=== PATIENT | female | born 1970 | race Caucasian/White ===

== ENCOUNTER 2017-04-18 11:30 | Emergency (ER) | payer OTHER ==
[~2017-04-18] VITALS: Ht 162.6 cm; Wt 84.5 kg
[~2017-04-18 11:30] MED LIST: ALPR0.5T PO; CIPR500T4 PO; DOCU-144 PO; HYDR-906 PO; IBUP-1542 PO; METR500T PO
[2017-04-18 11:46] VITALS: Ht 162.6 cm; Wt 84.5 kg
[2017-04-18 12:55] LABS: URINE BLOOD (Dip) POC 2+ (NEGATIVE)
--- NOTE | 2017-04-18 12:56 | ERD ---
ER Documentation Chief Complaint Date/Time DATE: 04/18/17 TIME: 12:54 Chief Complaint bodyache/pain x 3 days; no fever complaint; no dizziness HPI Patient is a 46-year-old female with a past medical history of anxiety who presents to the ED with body aches on and off for the last 4 days. She states that she has taken ibuprofen with minimal relief. Denies fever or chills. Denies abdominal pain, nausea, vomiting or diarrhea. Denies chest pain, cough or shortness of breath. Denies headache or dizziness. Denies trauma or falls. She states that she was she is premenopausal and states that it could possibly be related to this. Denies seizures. She states that she took Xanax yesterday which helped minimally with her symptoms. No other complaints. ROS All systems reviewed and are negative except as per history of present illness. Medications Home Meds Active Scripts Ibuprofen* (Motrin*) 400 Mg Tab, 400 MG PO Q6, #30 TAB Prov:DORIAN MILLIGAN PA-C 04/18/17 Docusate Sodium* (Colace*) 100 Mg Capsule, 100 MG PO TID, #30 CAP Prov:SPENSER ARCHULETA PA-C 11/01/16 Ibuprofen* (Motrin*) 600 Mg Tab, 600 MG PO Q6, #30 TAB Prov:SPENSER ARCHULETA PA-C 11/01/16 Hydrocodone/Acetaminophen ([place] 5-325 Tablet) 1 Each Tablet, 1 TAB PO Q6H Y for PAIN, #15 TAB Prov:SPENSER ARCHULETA PA-C 11/01/16 Metronidazole* (Flagyl*) 500 Mg Tablet, 500 MG PO TID for 7 Days, TAB Prov:SPENSER ARCHULETA PA-C 11/01/16 Ciprofloxacin Hcl* (Ciprofloxacin Hcl*) 500 Mg Tablet, 500 MG PO BID for 7 Days , TAB Prov:SPENSER ARCHULETA PA-C 11/01/16 Ibuprofen* (Motrin*) 600 Mg Tab, 600 MG PO Q6H Y for PAIN AND OR ELEVATED TEMP, #30 Prov:SPENCER PATRICIA MD 08/14/15 Reported Medications Alprazolam* (Xanax*) 0.5 Mg Tab, 0.5 MG PO once a month Y for ANXIETY, TAB 08/14/15 Allergies Allergies: Coded Allergies: No Known Allergies (Verified Allergy, Mild, 08/14/15) PMhx/Soc History of Surgery: Yes (CSECTION) Anesthesia Reaction: No Hx Neurological Disorder: No Hx Respiratory Disorders: No Hx Cardiac Disorders: No Hx Psychiatric Problems: Yes (Anxiety) Hx Miscellaneous Medical Probl: No Hx Alcohol Use: No Hx Substance Use: No Hx Tobacco Use: No FmHx Family History: No coronary disease, No diabetes, No other Physical Exam Vitals Vital Signs Date Time Temp Pulse Resp B/P Pulse Ox O2 Delivery O2 Flow Rate FiO2 04/18/17 11:46 98.3 90 18 137/81 98 Physical Exam GENERAL: Well-developed, well-nourished female. Appears in no acute distress. HEAD: Normocephalic, atraumatic. EYES: Pupils are equally reactive bilaterally. EOMs grossly intact. No conjunctival erythema. ENT: Moist mucous membranes. No uvula deviation. No kissing tonsils. No exudates. NECK: Supple. No lymphadenopathy or thyromegaly. No meningismus. negative kernig. negative brudinski. LUNG: Clear to auscultation bilaterally. No rhonchi, wheezing, rales or coarse breath sounds. HEART: Regular rate and rhythm. No murmurs, rubs or gallops. ABDOMEN: No scars, ecchymosis or rashes noted. Soft, nontender, and nondistended. Positive bowel sounds in all four quadrants. No rebound tenderness , no guarding. (-) McBurneys point tenderness. No CVA tenderness. BACK: No midline tenderness. Extremities: Equal pulses bilaterally. No peripheral clubbing, cyanosis or edema. No unilateral leg swelling. NEUROLOGIC: Alert and oriented. Moving all four extremities. 5/5 strength in all extremities. Normal speech. Steady gait. Cranial nerves II through XII intact. SKIN: Normal color. Warm and dry. No rashes or lesions. Capillary refill < 2 seconds Result Diagram: 04/18/17 1305 04/18/17 1305 Results 24 hrs Laboratory Tests Test 04/18/17 12:57 04/18/17 13:05 Bedside Urine pH (LAB) 5.5 Bedside Urine Protein (LAB) Negative Bedside Urine Glucose (UA) Negative Bedside Urine Ketones (LAB) Negative Bedside Urine Blood 2+ Bedside Urine Nitrite (LAB) Negative Bedside Urine Leukocyte Esterase (L Negative White Blood Count 7.910^3/ul Red Blood Count 4.8910^6/ul Hemoglobin 14.8g/dl Hematocrit 45.9% Mean Corpuscular Volume 93.9fl Mean Corpuscular Hemoglobin 30.3pg Mean Corpuscular Hemoglobin Concent 32.2g/dl Red Cell Distribution Width 12.8% Platelet Count 55289^3/UL Mean Platelet Volume 9.6fl Neutrophils % 60.0% Lymphocytes % 31.7% Monocytes % 5.9% Eosinophils % 1.6% Basophils % 0.5% Nucleated Red Blood Cells % 0.0/100WBC Neutrophils # 4.810^3/ul Lymphocytes # 2.510^3/ul Monocytes # 0.510^3/ul Eosinophils # 0.110^3/ul Basophils # 0.010^3/ul Nucleated Red Blood Cells # 0.010^3/ul Sodium Level 144mmol/L Potassium Level 4.9mmol/L Chloride Level 111mmol/L Carbon Dioxide Level 26mmol/L Anion Gap 12 Blood Urea Nitrogen 11mg/dl Creatinine 0.54mg/dl Glucose Level 97mg/dl Calcium Level 9.5mg/dl Procedures/MDM ER COURSE: I kept the patient and/or family informed of laboratory and diagnostic imaging results throughout the emergency room course. LABORATORY STUDIES CBC does not show signs of severe anemia or infection. BMP does not show electrolyte disturbance or hypoglycemia. MEDICAL DECISION MAKING: This is a 46-year-old female with a past medical history of anxiety who presents with generalized body aches and joint pain 4 days. Vital signs were reviewed. Patient is afebrile. Patient is not hypoxic. Patient is not toxic or ill-appearing. Patient has body aches and joint pain of unknown etiology. I have low suspicion for suicidal tendencies. Low suspicion for sepsis or meningitis. Low suspicion for ACS, AAA, perforated ulcer, bowel obstruction, cholecystitis, choledocholithiasis, cholangitis, pancreatitis, hepatic abscess, appendicitis, diverticulitis, gastroenteritis, hepatitis, peptic ulcer disease. DISCHARGE: At this time, patient is stable for discharge and outpatient management with no new complaints during the ER course. Patient was sent home with copy of all laboratory studies, Motrin and to follow-up with her primary care doctor. Advised patient to also follow-up with her creel cleaner to rule out autoimmune condition.. Patient will be discharged home with instructions to recheck for new or worsening symptoms such as fever, nausea, weakness, LOC and to follow up with primary care in the next 1-2 days. Patient was advised to return to the ER for any new or worsening symptoms. Plan was discussed and patient and/or family understands and agrees. Home instructions were given. Departure Diagnosis: Primary Impression: Body aches Condition: Stable DORIAN MILLIGAN PA-C April 18, 2017 12:56
[2017-04-18 13:10] LABS: ADD SCAN DIFF NO
[2017-04-18 13:24] LABS: BASOPHILS % 0.5 % (0.0-2.0); EOSINOPHILS # 0.1 10^3/ul (0.0-0.5); EOSINOPHILS % 1.6 % (0.0-7.0); HEMATOCRIT 45.9 % (37.0-47.0); HEMOGLOBIN 14.8 g/dl (12.0-16.0); LYMPHOCYTES # 2.5 10^3/ul (0.8-2.9); LYMPHOCYTES % 31.7 % (15.0-51.0); MEAN CORPUSCULAR HEMOGLOBIN 30.3 pg (29.0-33.0); MEAN CORPUSCULAR HGB CONC 32.2 g/dl (32.0-37.0); MEAN CORPUSCULAR VOLUME 93.9 fl (82.0-101.0); MEAN PLATELET VOLUME 9.6 fl (7.4-10.4); MONOCYTE # 0.5 10^3/ul (0.3-0.9); MONOCYTES % 5.9 % (0.0-11.0); NEUTROPHIL # 4.8 10^3/ul (1.6-7.5); PLATELET COUNT 327 10^3/UL (140-415); RED BLOOD COUNT 4.89 10^6/ul (4.20-5.40); RED CELL DISTRIBUTION WIDTH 12.8 % (11.5-14.5); WHITE BLOOD COUNT 7.9 10^3/ul (4.8-10.8)
[2017-04-18 13:27] LABS: POTASSIUM 4.9 mmol/L (3.5-5.1)
[2017-04-18 13:30] LABS: CREATININE 0.54 mg/dl (0.44-1.00)
[2017-04-18 13:31] LABS: CALCIUM 9.5 mg/dl (8.4-10.2)
[2017-04-18] MEDS ORDERED: IBUP400T22 PO (13:35)
== END 2017-04-18 13:49 | disposition home or self-care (01) ==
LOC: FTE 11:30
DX: R52 Pain, unspecified (principal)
CPT/HCPCS: 80048; 81003; 85025; Z7502; 99283

== ENCOUNTER 2017-05-12 17:28 | Emergency (ER) | payer OTHER ==
[~2017-05-12] VITALS: Ht 157.5 cm; Wt 83.0 kg
[~2017-05-12 17:28] MED LIST changes: +IBUP400T22 PO
[2017-05-12 17:39] VITALS: Ht 157.5 cm; Wt 83.0 kg
[2017-05-12] MEDS ORDERED: KETOROLAC 60 MG INJ IM STA (18:20)
[2017-05-12] MEDS ORDERED: ONDANSETRON (ODT) 4 MG TAB ODT STA (18:20)
--- NOTE | 2017-05-12 18:35 | RADRPT ---
PROCEDURE: CT Head without contrast. CLINICAL INDICATION: Headaches TECHNIQUE: The study was performed utilizing a GE 64-slice multidetector CT scanner. Direct spiral axial CT images of the brain were obtained from the vertex to the skull base without contrast. Cor onal and sagittal reformat images are provided. The CTDI vol is 42.3 mGy and the DLP is 720.23 mGy- cm. The images were reviewed on a PACS workstation. COMPARISON: No prior studies are available for comparison. FINDINGS: The ventricles and cortical sulci are within normal limits. The key-white matter differentiation i s maintained. No intra or extra-axial fluid collection or mass effect or shift in the midline struc tures is seen. The visualized paranasal sinuses, mastoid air cells, orbits, and calvarium are unrem arkable. IMPRESSION: Unremarkable CT of the head without contrast. RPTAT: HPNM Physician Anjelica Date Time Electronically viewed and signed by Physician Anjelica on 05/12/2017 18:35 /
[2017-05-12] MEDS ORDERED: ASPI1TAB30 PO (18:51)
--- NOTE | 2017-05-12 18:59 | ERD ---
ER Documentation Chief Complaint Date/Time DATE: 05/12/17 TIME: 18:56 Chief Complaint Complains of headache HPI 46-year-old female presents with headache that she has had for 2 days. It was gradual in onset of bilateral frontal throbbing in nature that radiates to her neck. She admits to nausea but no vomiting. She took naproxen which helped temporarily. She describes the pain as pressure-like. Denies any trauma, photosensitivity, or visual changes. ROS All systems reviewed and are negative except as per history of present illness. Medications Home Meds Active Scripts Aspirin/Acetaminophen/Caffeine (Excedrin Migraine Caplet) 1 Each Tablet, 1 EACH PO Q6, #30 TAB Prov:DARA MARTINEZ PA-C 05/12/17 Ibuprofen* (Motrin*) 400 Mg Tab, 400 MG PO Q6, #30 TAB Prov:DORIAN MILLIGAN PA-C 04/18/17 Docusate Sodium* (Colace*) 100 Mg Capsule, 100 MG PO TID, #30 CAP Prov:SPENSER ARCHULETA PA-C 11/01/16 Ibuprofen* (Motrin*) 600 Mg Tab, 600 MG PO Q6, #30 TAB Prov:SPENSER ARCHULETA PA-C 11/01/16 Hydrocodone/Acetaminophen ([place] 5-325 Tablet) 1 Each Tablet, 1 TAB PO Q6H Y for PAIN, #15 TAB Prov:SPENSER ARCHULETA PA-C 11/01/16 Metronidazole* (Flagyl*) 500 Mg Tablet, 500 MG PO TID for 7 Days, TAB Prov:SPENSER ARCHULETA PA-C 11/01/16 Ciprofloxacin Hcl* (Ciprofloxacin Hcl*) 500 Mg Tablet, 500 MG PO BID for 7 Days , TAB Prov:SPENSER ARCHULETA PA-C 11/01/16 Ibuprofen* (Motrin*) 600 Mg Tab, 600 MG PO Q6H Y for PAIN AND OR ELEVATED TEMP, #30 Prov:SPENCER PATRICIA MD 08/14/15 Reported Medications Alprazolam* (Xanax*) 0.5 Mg Tab, 0.5 MG PO once a month Y for ANXIETY, TAB 08/14/15 Allergies Allergies: Coded Allergies: No Known Allergies (Verified Allergy, Mild, 05/12/17) PMhx/Soc History of Surgery: Yes (CSECTION) Anesthesia Reaction: No Hx Neurological Disorder: No Hx Respiratory Disorders: No Hx Cardiac Disorders: No Hx Psychiatric Problems: Yes (Anxiety) Hx Miscellaneous Medical Probl: No Hx Alcohol Use: No Hx Substance Use: No Hx Tobacco Use: No Smoking Status: Never smoker FmHx Family History: No diabetes Physical Exam Vitals Vital Signs Date Time Temp Pulse Resp B/P Pulse Ox O2 Delivery O2 Flow Rate FiO2 05/12/17 17:39 98.3 105 20 156/79 99 Physical Exam General: well developed, well nourished, alert, nontoxic, no distress Head: normocephalic, atraumatic Eyes: PERRL, normal conjunctiva Neck: Supple, nontender, no lymphadenopathy, no midline tenderness Respiratory: Clear to auscaultation bilaterally, speaks in full sentences, no use of accesory muscles or labored breathing, no rales, ronchi, or wheezing Cardiovascular: RRR, No murmurs Neuro: CN 2-12 intact, normal speech, 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 She has elevated blood pressure 156/79. Patient's blood pressure was elevated (>120/80) but appears stable without evidence of hypertension emergency or urgency. The patient was counseled about the risks of hypertension and urged to pursue outpatient monitoring and therapy within a week with their primary care physician. She does appear very anxious in the ER and she does state she has a history of anxiety which is most likely also contributing to her headache. Her neurological examination is normal. Furthermore her CT scan of the brain is also unremarkable. She was given Toradol and Zofran here with improvement of her symptoms and she was discharged with anti-inflammatories. Recommended this patient follow up with her primary care doctor within 48 hours or return to the emergency room for any worsening of symptoms. However this time I do believe there is suitable for outpatient management. I answered all their questions and they agreed with the plan and were discharged home. Departure Diagnosis: Primary Impression: Headache Condition: Stable Patient Instructions: Self-Care for Headaches Additional Instructions: Llame al doctor MAANA y quirino ricky LATASHA PARA DENTRO DE 1-2 GAO.Dgale a la secretaria que nosotros le instruimos hacer esta latasha.Avise o llame si dawson condicin se empeora antes de la latasha. Regresa aqui si peor o no mejor. DARA MARTINEZ PA-C May 12, 2017 18:59
[2017-05-12 19:06] VITALS: BP 138/75; PULSE 89; RESP 20; TEMP 98.3
== END 2017-05-12 19:08 | disposition home or self-care (01) ==
LOC: FTE 17:28
DX: R51 Headache (principal)
CPT/HCPCS: 70450; 96372; J1885; Z7502

== ENCOUNTER 2017-07-18 17:27 | Emergency (ER) | payer OTHER ==
[~2017-07-18] VITALS: Wt 83.2 kg
[~2017-07-18 17:27] MED LIST changes: +ASPI1TAB30 PO
[2017-07-18] MEDS ORDERED: ONDANSETRON 4 MG INJ IV STA (20:13)
[2017-07-18] MEDS ORDERED: morphine 4 MG/ML VIAL IV STA (20:13)
[2017-07-18] MEDS ORDERED: SOD CHLORIDE 0.9% 1,000 ML IV STA (20:13)
--- NOTE | 2017-07-18 20:41 | ERD ---
ER Documentation Chief Complaint Date/Time DATE: 07/18/17 TIME: 20:39 Chief Complaint r. pelvic pain rad into back HPI 47-year-old female presents here in emergency department for complaints of right pelvic/lower abdominal pain that radiates to the right back area, flank area that started one week ago. Patient described the pain as sharp pain, 6/10 scale, is worse upon movement. Patient did not take any medications to help with symptoms. Patient has fever but denies any hematuria or dysuria. Patient denies any trauma and affected area. Patient denies any diarrhea or constipation. ROS All systems reviewed and are negative except as per history of present illness. Medications Home Meds Active Scripts Aspirin/Acetaminophen/Caffeine (Excedrin Migraine Caplet) 1 Each Tablet, 1 EACH PO Q6, #30 TAB Prov:DARA MARTINEZ PA-C 05/12/17 Ibuprofen* (Motrin*) 400 Mg Tab, 400 MG PO Q6, #30 TAB Prov:DORIAN MILLIGAN PA-C 04/18/17 Docusate Sodium* (Colace*) 100 Mg Capsule, 100 MG PO TID, #30 CAP Prov:SPENSER ARCHULETA PA-C 11/01/16 Ibuprofen* (Motrin*) 600 Mg Tab, 600 MG PO Q6, #30 TAB Prov:SPENSER ARCHULETA PA-C 11/01/16 Hydrocodone/Acetaminophen ([place] 5-325 Tablet) 1 Each Tablet, 1 TAB PO Q6H Y for PAIN, #15 TAB Prov:SPENSER ARCHULETA PA-C 11/01/16 Metronidazole* (Flagyl*) 500 Mg Tablet, 500 MG PO TID for 7 Days, TAB Prov:SPENSER ARCHULETA PA-C 11/01/16 Ciprofloxacin Hcl* (Ciprofloxacin Hcl*) 500 Mg Tablet, 500 MG PO BID for 7 Days , TAB Prov:SPENSER ARCHULETA PA-C 11/01/16 Ibuprofen* (Motrin*) 600 Mg Tab, 600 MG PO Q6H Y for PAIN AND OR ELEVATED TEMP, #30 Prov:SPENCER PATRICIA MD 08/14/15 Reported Medications Alprazolam* (Xanax*) 0.5 Mg Tab, 0.5 MG PO once a month Y for ANXIETY, TAB 08/14/15 Allergies Allergies: Coded Allergies: No Known Allergies (Verified Allergy, Mild, 05/12/17) PMhx/Soc History of Surgery: Yes () Anesthesia Reaction: No Hx Neurological Disorder: No Hx Respiratory Disorders: No Hx Cardiac Disorders: No Hx Psychiatric Problems: Yes (Anxiety) Hx Miscellaneous Medical Probl: Yes (Diverticulitis) Hx Alcohol Use: No Hx Substance Use: No Hx Tobacco Use: No Smoking Status: Never smoker FmHx Family History: No coronary disease, No diabetes, No other Physical Exam Vitals Vital Signs Date Time Temp Pulse Resp B/P Pulse Ox O2 Delivery O2 Flow Rate FiO2 07/18/17 17:48 99.5 98 20 138/81 99 Physical Exam GENERAL: The patient is well developed and appropriate for usual state of health, in no apparent distress. CHEST: Clear to auscultation bilaterally. There are no rales, wheezes or rhonchi. HEART: Regular rate and rhythm. No murmurs, clicks, rubs or gallops. No S3 or S4. ABDOMEN: Soft,right lower quadrant tenderness noted and nondistended. Good bowel sounds. No rebound or guarding. No gross peritonitis. No gross organomegaly or masses. No Odonnell sign. BACK: No midline or flank tenderness. EXTREMITIES: Equal pulses bilaterally. There is no peripheral clubbing, cyanosis or edema. No focal swelling or erythema. Full range of motion. Grossly neurovascularly intact. NEURO: Alert and oriented. Cranial nerves 2-12 intact. Motor strength in all 4 extremities with 5/5 strength. Sensation grossly intact. Normal speech and gait. SKIN: There is no apparent rash or petechia. The skin is warm and dry. HEMATOLOGIC AND LYMPHATIC: There is no evidence of excessive bruising or lymphedema. No gross cervical, axillary, or inguinal lymphadenopathy. Result Diagram: 07/18/17205307/18/172053 Results 24 hrs Laboratory Tests Test 07/18/17 20:54 07/18/17 22:19 White Blood Count 9.810^3/ul Red Blood Count 4.5210^6/ul Hemoglobin 14.0g/dl Hematocrit 41.9% Mean Corpuscular Volume 92.7fl Mean Corpuscular Hemoglobin 31.0pg Mean Corpuscular Hemoglobin Concent 33.4g/dl Red Cell Distribution Width 13.1% Platelet Count 30534^3/UL Mean Platelet Volume 9.9fl Neutrophils % 62.0% Lymphocytes % 29.7% Monocytes % 5.9% Eosinophils % 1.7% Basophils % 0.4% Nucleated Red Blood Cells % 0.0/100WBC Neutrophils # (Manual) 6.110^3/ul Lymphocytes # 2.910^3/ul Monocytes # 0.610^3/ul Eosinophils # 0.210^3/ul Basophils # 0.010^3/ul Nucleated Red Blood Cells # 0.010^3/ul Sodium Level 145mmol/L Potassium Level 4.1mmol/L Chloride Level 101mmol/L Carbon Dioxide Level 26mmol/L Anion Gap 22 Blood Urea Nitrogen 13mg/dl Creatinine 0.66mg/dl Glucose Level 100mg/dl Calcium Level 9.5mg/dl Total Bilirubin 0.2mg/dl Direct Bilirubin 0.00mg/dl Indirect Bilirubin 0.2mg/dl Aspartate Amino Transf (AST/SGOT) 29IU/L Alanine Aminotransferase (ALT/SGPT) 42IU/L Alkaline Phosphatase 68IU/L Total Protein 8.4g/dl Albumin 4.7g/dl Globulin 3.70g/dl Albumin/Globulin Ratio 1.27 Lipase 57U/L Bedside Urine pH (LAB) 6.0 Bedside Urine Protein (LAB) Negative Bedside Urine Glucose (UA) Negative Bedside Urine Ketones (LAB) Negative Bedside Urine Blood 1+ Bedside Urine Nitrite (LAB) Negative Bedside Urine Leukocyte Esterase (L Negative Current Medications Medications (Trade) Dose Ordered Sig/Tess Route PRN Reason Start Time Stop Time Status Last Admin Dose Admin Sodium Chloride (NS) 1,000 ml @ 1,000 mls/hr Q1H STAT IV 07/18/17 20:13 07/18/17 21:12 DC 07/18/17 21:06 Morphine Sulfate (morphine) 4 mg ONCE STAT IV 07/18/17 20:13 07/18/17 20:14 DC Ondansetron HCl (Zofran Inj) 4 mg ONCE STAT IV 07/18/17 20:13 07/18/17 20:14 DC Patient was given medication for pain here in emergency department, after treatment, patient verbalized feeling much better. Patient's pain is improved.Patient was given Zofran here in the emergency department. After treatment, patient was able to tolerate po fluids here in the emergency department without any vomiting. There is no signs and symptoms of dehydration. Normal saline IV bolus was given here in emergency department for rehydration, patient tolerated IV fluids. PROCEDURE: CT abdomen and pelvis without contrast. CLINICAL INDICATION: Abdominal and pelvic pain radiating to the back. TECHNIQUE: CT of the abdomen and pelvis without contrast was performed on a multidetector high-resolution CT scanner. Coronal and sagittal reformatted images were obtained from the axial source images. Images were reviewed on a high-resolution PACS workstation. The total exam CTDI equals 14.93 mGy and the total exam DLP equals 842.62 mGy-cm. One or more of the following dose reduction techniques were used: - Automated exposure control. - Adjustment of the mA and/or kV according to patient size. - Use of iterative reconstruction technique. COMPARISON: CT dated 11/01/2016. FINDINGS: Visualized lower thorax: The visualized lung bases are clear. The visualized heart is unremarkable. Hepatobiliary system and spleen: The liver is grossly unremarkable. There is no intra or extrahepatic biliary ductal dilatation. The gallbladder is grossly unremarkable. The spleen is grossly unremarkable. The pancreas is grossly unremarkable. Adrenal glands and genitourinary system: The adrenal glands are grossly unremarkable. There is a 7 mm angiomyolipoma at the lower pole of the left kidney. There is no nephrolithiasis or hydronephrosis. The urinary bladder is grossly unremarkable. The uterus and left adnexa are grossly unremarkable. There is a simple appearing 2.7 cm right ovarian cyst. Gastrointestinal system: There is sigmoid and descending colonic diverticulosis without evidence of diverticulitis. There is no bowel wall thickening or evidence of obstruction. The appendix is in the right lower quadrant and is unremarkable. Peritoneum, vascular, and lymphatics: There is no free intraperitoneal air or free fluid. There is no mesenteric or retroperitoneal adenopathy. The aorta is nonaneurysmal. Musculoskeletal system and soft tissues: There is multilevel degenerative enthesopathy, which is moderate to severe at L5-S1. There are no concerning osseous lesions. The soft tissues are grossly unremarkable. IMPRESSION: 1. No acute abnormality or findings to suggest a source of the patient's symptoms. 2. 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 3. Simple appearing 2.7 cm right ovarian cyst. 4. Sigmoid and descending colonic diverticulosis without evidence of diverticulitis. RPTAT: [facility] .Dain Ramirez MD, MD Date Time Electronically viewed and signed by .Dain Ramirez MD, MD on 07/18/2017 20:47 .P/ CC: LITO HOBBS NP Procedures/MDM Medical Decision Making: Patient's symptoms of right pelvic pain most likely is consistent with a right ovarian cyst noted in the CAT scan. There is no symptoms of any appendicitis. No urinary tract infection noted. No symptoms Of pyelonephritis.There is low suspicion for abdominal emergencies at this time. Patients abdominal exam is normal at this time. Patients radiology exam does not show any abdominal emergencies at this time. There is low suspicion for appendicitis, cholecystitis, abdominal aortic aneurysms or peritonitis at this time. There is low suspicion for sepsis. Patient appears well and is hemodynamically stable. Disposition: Home. Condition: Stable Prescription Lyle ibuprofen Instructions: Patient is advised to take medications as prescribed. Patient is advised to rest, increase fluid intake and do brat diet for next 1-2 days and progress as tolerated. Patient is advised that if symptoms are worse, severe abdominal pain, uncontrolled vomiting, high fever, severe flank pain, worst signs and symptoms, to return to the emergency department immediately. Otherwise, patient can follow up with primary care doctor in 5-7 days. see gynecology doctor for possible removal of ovarian cyst Departure Diagnosis: Primary Impression: Ovarian cyst Laterality: right Qualified Code: N83.201 - Cyst of right ovary Condition: Stable Patient Instructions: Ovarian Cyst Additional Instructions: Patient is advised to take medications as prescribed. Patient is advised to rest , increase fluid intake and do brat diet for next 1-2 days and progress as tolerated. Patient is advised that if symptoms are worse, severe abdominal pain , uncontrolled vomiting, high fever, severe flank pain, worst signs and symptoms , to return to the emergency department immediately. Otherwise, patient can follow up with primary care doctor in 5-7 days. see gynecology doctor for possible removal of ovarian cyst LITO HOBBS NP Jul 18, 2017 20:41
--- NOTE | 2017-07-18 20:47 | RADRPT ---
PROCEDURE: CT abdomen and pelvis without contrast. CLINICAL INDICATION: Abdominal and pelvic pain radiating to the back. TECHNIQUE: CT of the abdomen and pelvis without contrast was performed on a multidetector high-reso lution CT scanner. Coronal and sagittal reformatted images were obtained from the axial source image s. Images were reviewed on a high-resolution PACS workstation. The total exam CTDI equals 14.93 mGy and the total exam DLP equals 842.62 mGy-cm. One or more of the following dose reduction techniques were used: - Automated exposure control. - Adjustment of the mA and/or kV according to patient size. - Use of iterative reconstruction technique. COMPARISON: CT dated 11/01/2016. FINDINGS: Visualized lower thorax: The visualized lung bases are clear. The visualized heart is unremarkable. Hepatobiliary system and spleen: The liver is grossly unremarkable. There is no intra or extrahepat ic biliary ductal dilatation. The gallbladder is grossly unremarkable. The spleen is grossly unremar kable. The pancreas is grossly unremarkable. Adrenal glands and genitourinary system: The adrenal glands are grossly unremarkable. There is a 7 mm angiomyolipoma at the lower pole of the left kidney. There is no nephrolithiasis or hydronephrosi s. The urinary bladder is grossly unremarkable. The uterus and left adnexa are grossly unremarkable . There is a simple appearing 2.7 cm right ovarian cyst. Gastrointestinal system: There is sigmoid and descending colonic diverticulosis without evidence of diverticulitis. There is no bowel wall thickening or evidence of obstruction. The appendix is in th e right lower quadrant and is unremarkable. Peritoneum, vascular, and lymphatics: There is no free intraperitoneal air or free fluid. There is no mesenteric or retroperitoneal adenopathy. The aorta is nonaneurysmal. Musculoskeletal system and soft tissues: There is multilevel degenerative enthesopathy, which is mo derate to severe at L5-S1. There are no concerning osseous lesions. The soft tissues are grossly unr emarkable. IMPRESSION: 1. No acute abnormality or findings to suggest a source of the patient's symptoms. 2. 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 3. Simple appearing 2.7 cm right ovarian cyst. 4. Sigmoid and descending colonic diverticulosis without evidence of diverticulitis. RPTAT: [facility] .Dain Ramirez MD, MD Date Time Electronically viewed and signed by .Dain Ramirez MD, MD on 07/18/2017 20:47 .P/
[2017-07-18 21:07] LABS: BASOPHILS % 0.4 % (0.0-2.0); EOSINOPHILS # 0.2 10^3/ul (0.0-0.5); EOSINOPHILS % 1.7 % (0.0-7.0); HEMATOCRIT 41.9 % (37.0-47.0); LYMPHOCYTES # 2.9 10^3/ul (0.8-2.9); LYMPHOCYTES % 29.7 % (15.0-51.0); MEAN CORPUSCULAR HGB CONC 33.4 g/dl (32.0-37.0); MEAN CORPUSCULAR VOLUME 92.7 fl (82.0-101.0); MEAN PLATELET VOLUME 9.9 fl (7.4-10.4); MONOCYTE # 0.6 10^3/ul (0.3-0.9); MONOCYTES % 5.9 % (0.0-11.0); PLATELET COUNT 312 10^3/UL (140-415); RED BLOOD COUNT 4.52 10^6/ul (4.20-5.40); RED CELL DISTRIBUTION WIDTH 13.1 % (11.5-14.5); WHITE BLOOD COUNT 9.8 10^3/ul (4.8-10.8)
[2017-07-18 21:24] LABS: ALBUMIN 4.7 g/dl (3.3-4.9); ALBUMIN/GLOBULIN RATIO 1.27; BILIRUBIN,INDIRECT 0.2 mg/dl (0-1.1); BILIRUBIN,TOTAL 0.2 mg/dl (0.2-1.3); CALCIUM 9.5 mg/dl (8.4-10.2); CREATININE 0.66 mg/dl (0.44-1.00); POTASSIUM 4.1 mmol/L (3.5-5.1); TOTAL PROTEIN 8.4 g/dl (6.1-8.1)
[2017-07-18 22:13] LABS: URINE BLOOD (Dip) POC 1+ (NEGATIVE)
[2017-07-18] MEDS ORDERED: HYDR-906 PO (22:25)
[2017-07-18] MEDS ORDERED: IBUP-1542 PO (22:25)
[2017-07-18 23:00] VITALS: BP 128/83; PULSE 81; RESP 16; TEMP 98.4
== END 2017-07-18 22:25 | disposition home or self-care (01) ==
LOC: FTE 17:27
DX: N83.201 Unspecified ovarian cyst, right side (principal)
CPT/HCPCS: 36415; 74176; 80053; 81003; 83690; 85025; J7030; Z7502